=== PATIENT | female | born 1985 | race Caucasian/White ===

== ENCOUNTER 2016-03-06 12:30 | Emergency (ER) | payer OTHER ==
[2016-03-06 16:28] VITALS: BP 118/70
[2016-03-06] MEDS ORDERED: Fluorescein Sodium TOPICAL* 1 MG TEST ONE (16:44)
[2016-03-06] MEDS ORDERED: Ciprofloxacin 0.3% OPTH.SOL* 2.5 ML BTL BOTH EYES ONE (16:54)
--- NOTE | 2016-03-06 17:04 | UC ---
Eye Complaint HPI - HPI Summary HPI Summary: 31 yo female with bilateral eye pain and redness x 4-5 days tearing no thick d/c photophobia onset after a one hour nap in contact lenses no URI symptoms - History of Current Complaint Chief Complaint: UCEye Stated Complaint: EYE COMPLAINT Time Seen by Provider: 03/06/16 16:41 Hx Obtained From: Patient Hx Last Menstrual Period: 11/2014, is nursing, had tubal Onset/Duration: Gradual Onset, Lasting Days Timing: Constant Severity Initially: Mild Severity Currently: Moderate Pain Intensity: 6 Pain Scale Used: 0-10 Numeric Location of Injury: Conjunctiva Character: Sharp Aggravating Factor(s): Light Alleviating Factor(s): Darkness Associated Signs And Symptoms: Positive: Photophobia, Drainage (Clear) - Risk Factors Penetrating Injury Risk Factor: Negative Globe Rupture Risk Factors: Negative Acute Glaucoma Risk Factors: Negative Optic Artery Occlusion Risk Factors: Negative - Allergies/Home Medications Allergies/Adverse Reactions: Allergies Allergy/AdvReac Type Severity Reaction Status Date / Time No Known Allergies Allergy Verified 03/06/16 16:28 Home Medications: Home Medications Multivitamins/Minerals TAB* [Thera M Plus TAB*] 1 tab PO DAILY 03/06/16 [ History Confirmed 03/06/16] PMH/Surg Hx/FS Hx/Imm Hx Previously Healthy: Yes - Surgical History Surgical History: Yes Surgery Procedure, Year, and Place: x3 - Family History Known Family History: Positive: Hypertension, Other - no hx glacoma Family History: R & n/C - Social History Alcohol Use: None Substance Use Type: None Smoking Status (MU): Never Smoked Tobacco Have You Smoked in the Last Year: No - Immunization History Most Recent Influenza Vaccination: unsure Most Recent Tetanus Shot: 05/04/2015 Most Recent Pneumonia Vaccination: never Review of Systems Constitutional: Negative Skin: Negative Eyes: Eye Redness, Photophobia ENT: Negative Respiratory: Negative Cardiovascular: Negative Gastrointestinal: Negative Genitourinary: Negative Motor: Negative Neurovascular: Negative Musculoskeletal: Negative Neurological: Negative Psychological: Negative All Other Systems Reviewed And Are Negative: Yes Physical Exam Triage Information Reviewed: Yes Appearance: Well-Appearing, No Pain Distress, Well-Nourished Vital Signs: Initial Vital Signs Temp 99.0 F 03/06/16 16:22 Pulse 89 03/06/16 16:22 Resp 16 03/06/16 16:22 BP 118/70 03/06/16 16:22 Pulse Ox 98 03/06/16 16:22 Eyes: Positive: Conjunctiva Inflamed, Other: - conjunctiva of left eye appears cobblestoned, both eye (-) flourescein staining ENT: Positive: Hearing grossly normal. Negative: Nasal congestion, Nasal drainage, Trismus, Muffled/hoarse voice Neck: Positive: Nontender, No Lymphadenopathy Respiratory: Positive: Lungs clear, Normal breath sounds, No respiratory distress, No accessory muscle use Cardiovascular: Positive: RRR Musculoskeletal: Positive: ROM Intact, No Edema Neurological: Positive: Alert Psychological Exam: Normal Skin Exam: Normal Eye Complaint Course/Dx - Differential Dx/Diagnosis Provider Diagnoses: red eye of uncertain cause Discharge - Discharge Plan Condition: Stable Disposition: HOME Referrals: Itz Reyna MD [Medical Doctor] - 1 Day Antonio Osorio MD [Medical Doctor] - 1 Day Additional Instructions: use cipro eye drops as directed no contact lenses see curriculum specialist tomorrow I saw no ulceration or scratch
== END 2016-03-06 17:06 | disposition home or self-care (01) ==
LOC: UCCORT 12:30
DX: H57.8 Other specified disorders of eye and adnexa (principal)
CPT/HCPCS: 99212; A9270-GY; G0463